=== PATIENT | female | born 1940 | race Caucasian/White ===

== ENCOUNTER → 2016-03-28 | Outpatient (CLI) | payer OTHER ==
[~2016-03-28] MED LIST: ACET-784 PO; ALEN35TA32 PO; CILO100T20 PO; CLOP75 PO; DONE10TA PO; FURO20 PO; LORA2TAB2 PO; LOSA50TA37 PO; OMEP20 PO; POTA10TA17 PO; ROPI0.255 PO; SIMV-260 PO; TRAM50TA4 PO; VALS1TAB2 PO; VITAD1000 PO
== END | disposition home or self-care (01) ==
LOC: RADPV 12:36
PROVIDERS: ATTEND Family Medicine
DX: M81.0 Age-related osteoporosis without current pathological fracture (principal)
CPT/HCPCS: 77080

== ENCOUNTER → 2016-09-26 | Outpatient (CLI) | payer OTHER | END | disposition home or self-care (01) | LOC: RADPV 11:36 | PROVIDERS: ATTEND Family Medicine | DX: I70.0 Atherosclerosis of aorta (principal) | CPT/HCPCS: 71020 ==